=== PATIENT | female | born 1980 | race Caucasian/White ===

== ENCOUNTER 2017-10-21 06:23 | Day surgery (SDC) | payer BC ==
[~2017-10-21 06:23] MED LIST: Buffered Lidocaine 0.9% SYRIN* 5 ML/SYR SYRINGE INTRADERM ONE; Famotidine TAB* 20 MG PO ONE
[2017-10-21] MEDS ORDERED: Famotidine TAB* 20 MG ONE (06:24)
[2017-10-21] MEDS ORDERED: ceFAZolin 2 GM PREMIX (*) 2 GM/50 ML BAG IVPB ONE (06:31)
[2017-10-21] MEDS ORDERED: Bupivacaine 0.25% SDV* 30 ML ONE ×2 (07:11→09:06)
[2017-10-21] MEDS ORDERED: Midazolam* 1 MG/ML 5 ML VIAL (5 MG) ONE (07:27)
[2017-10-21] MEDS ORDERED: fentaNYL* 50 MCG/ML 2 ML VIAL (100 MCG VIAL) ONE (07:27)
[2017-10-21] MEDS ORDERED: oxyCODONE TAB* 5 MG TAB PO PRN (07:45)
[2017-10-21] MEDS ORDERED: Naloxone* 0.4 MG/ML 1 ML VIAL IV PRN (07:45)
[2017-10-21] MEDS ORDERED: HYDROmorphone INJ* 1 MG/ML CARPUJECT SYRINGE IV PRN (07:45)
[2017-10-21] MEDS ORDERED: Acetaminophen TAB* 325 MG PO PRN (07:45)
[2017-10-21] MEDS ORDERED: Lidocaine 2% PF * 5 ML VIAL ONE (08:33)
[2017-10-21] MEDS ORDERED: Propofol* 10 MG/ML 20 ML BTL IV PUSH ONE (08:33)
[2017-10-21] MEDS ORDERED: DiMENhydriNATE IV* 50 MG/ML VIAL ONE ×2 (08:33→10:17)
[2017-10-21] MEDS ORDERED: Ondansetron INJ* 2 MG/ML VIAL ONE (08:33)
[2017-10-21] MEDS ORDERED: Dexamethasone IV* 4 MG/ML 1 ML (4 MG) ONE (08:33)
[2017-10-21] MEDS ORDERED: Ketorolac INJ* 30 MG/ML 1 ML VIAL ONE (08:33)
[2017-10-21] MEDS ORDERED: EPHEDrine (Pressors)* 50 MG/ML VIAL ONE (08:54)
[2017-10-21] MEDS ORDERED: Glycopyrrolate IV* 0.2 MG/ML 1 ML VIAL ONE (08:54)
[2017-10-21] MEDS ORDERED: DiMENhydriNATE IV* 50 MG/ML VIAL IV PUSH PRN (10:19)
[2017-10-21 10:45] VITALS: BP 119/65
--- NOTE | 2017-10-21 13:59 | OP ---
DATE OF OPERATION: 10/21/17 - [facility] DATE OF : 78 SURGEON: Homero Levy MD RAD TECHNOLOGIST: FRANCESCO Nicole. An senior office support assistant sosa was needed through the entirety of the procedure to aid in positioning of the arm and retraction. ANESTHESIOLOGIST: Dr. Sullivan. ANESTHESIA: General. PRE-OP DIAGNOSES: 1. Left wrist triangular fibrocartilage complex tear. 2. Severe left extensor carpi ulnaris tendinitis. POST-OP DIAGNOSES: 1. Left wrist triangular fibrocartilage complex tear. 2. Severe left extensor carpi ulnaris tendinitis. OPERATIVE PROCEDURE: 1. Left wrist arthroscopic TFCC debridement. 2. Left wrist extensor carpi ulnaris tendon tenosynovectomy with groove deepening and retinacular repair. Please note that this was extensively more work than a traditional tenosynovectomy as it required the use of the elaine for groove deepening and creation of a retinacular flap for loose closure over the tendon to allow for frictionless gliding of the tendon. INDICATIONS: Renée is 37 year old. She has severe dorsal and wrist pain. Exam was consistent with severe ECU tendonitis, MRI confirmed this. She got better with an injection. She also had a bit of central tearing on the MRI of her TFCC. I talked to her about doing arthroscopic TFCC debridement and addressing the ECU tendonitis as well. She understood the risks and benefits. She wanted to proceed. ESTIMATED BLOOD LOSS: 10 mL. COMPLICATIONS: See above and below. FINDINGS: A central TFCC tear was noted on the arthroscopic portion of the procedure. DESCRIPTION OF PROCEDURE: Renée was seen in the preoperative holding area. The correct side, site, and procedure were identified. We came back to the operating room where the arm was prepped and draped in the usual fashion. A time -out was performed. The arm was placed in the Acumed traction tower and traction was applied to the wrist. The arm was then exsanguinated and tourniquet was inflated to 250 mmHg. I developed a 3-4 arthroscopic portal in a standard fashion using an 11 blade followed by the mosquito and then the blunt trocar. The camera was introduced. The diagnostic arthroscopic ports of the procedure was begun. The radial-sided structures all looked good. As we came ulnar, there was a central TFCC tear that was noted. I developed 4-5 portal and introduced the shaver into the portal. We debrided the tear. It was about at this point that she experienced severe bradycardia. Per Dr. Sullivan' recommendation, we stopped the procedure. The drapes were taken down. Tourniquet was deflated. She was treated with medication and her bradycardia resolved completely over the course of the next minute or so. We waited few more minutes. At this point, she was looking very stable, so we went ahead and proceeded as the remainder of the procedure could be done under local MAC anesthesia with minimal pain and the patient's part and minimal anesthesia. We cleaned the arm again and then draped again in the usual fashion. We had another time-out, and then I made a longitudinal incision over the dorsal ulnar wrist over the area of the fifth dorsal compartment. Dissection was carried down longitudinally. The extensor retinaculum of the sixth dorsal compartment was released. There was tenosynovitis encountered all about the tendon, this was debrided. The tendon was then retracted out of the way. I excised the periosteum off of the groove in the ulna where the tendon resides. The groove was then deepened using the 4 mm pineapple elaine. Once I had excised all of the tenosynovitis and confirmed a complete tenosynovectomy in the sixth dorsal compartment, I then deepened the groove, I irrigated out the wound. The ECU tendon was placed back into the groove after bone wax was applied to the bed of the groove. The septum between the fifth and sixth dorsal compartments was released. The EDM tendon was transposed dorsal to the retinaculum. This gave a little bit more length on the retinaculum. I performed a little rotation of flap with the sixth dorsal compartment retinaculum. This was then rotated and then sewed in place loosely over the ECU tendon leaving the EDM tendon transposed. At this point, there was absolutely no compression on the ECU tendon. Everything was looking nice and clean, so we irrigated out the wounds. Skin was closed with 4-0 Monocryl and Steri-Strips. She had no further physiological issues throughout the remainder of the case. She woke up uneventfully and was taken to recovery room in stable condition. I did place her on a short arm cock-up splint. [id number]/[facility] #: [id number] [facility]PITALJer
== END 2017-10-21 10:54 | disposition home or self-care (01) ==
LOC: OREAST 06:23
PROVIDERS: ATTEND Orthopaedic Surgery Hand Surgery
DX: M65.842 Other synovitis and tenosynovitis, left hand (principal); M24.832 Other specific joint derangements of left wrist, not elsewhere classified; Z87.891 Personal history of nicotine dependence; E03.9 Hypothyroidism, unspecified; G91.2 (Idiopathic) normal pressure hydrocephalus
CPT/HCPCS: 81025; 88304; A9270-GY; J0690; J1100; J1240; J1885; J2250; J2405; J2704; J3010

== ENCOUNTER 2019-05-21 12:58 | Emergency (ER) | payer BC ==
[2019-05-21 13:59] VITALS: BP 120/63
--- NOTE | 2019-05-21 14:52 | UC ---
Minor Trauma HPI - HPI Summary HPI Summary: Pt presents with c/o right knee, ankle and barnes pain s/p falling from standing height elaine evening in her bathroom at home. Pt reports that she has c/o pain with weight bearing and has large bruise on right mid anterior barnes. Pt reports that she hit her head on the sink as well but denies LOC, nausea, vomiting, or L[place]S. - History of Current Complaint Chief Complaint: UCLowerExtremity Stated Complaint: RT LEG INJURY Time Seen by Provider: 05/21/19 14:25 Hx Obtained From: Patient Hx Last Menstrual Period: pt is on depo, does not have reg periods ?: No Onset/Duration: Lasting Days, Still Present Onset Of Pain: Post Accident Severity Initially: Mild Severity Currently: Moderate Pain Intensity: 6 Mechanism Of Injury: Fall From A Standing Position, Twisted Aggravating Factor(s): Ambulation, Weight Bearing Alleviating Factor(s): Rest Associated Signs And Symptoms: Positive: Ecchymosis, Swelling - Risk Factors Penetrating Injury Risk Factors: Negative - Allergies/Home Medications Allergies/Adverse Reactions: Allergies Allergy/AdvReac Type Severity Reaction Status Date / Time codeine Allergy Severe nausea, Verified 05/21/19 13:43 dizziness Opioids - Morphine Analogues Allergy Unknown Unknown Verified 05/21/19 13:44 Reaction Details Home Medications: Home Medications Cyanocobalamin TAB* [Vitamin B12 TAB*] 500 mcg PO DAILY 05/21/19 [History Confirmed 05/21/19] PMH/Surg Hx/FS Hx/Imm Hx Previously Healthy: Yes - Surgical History Surgical History: None Surgery Procedure, Year, and Place: had 2 epidural with childbirth to prevent pain induced seizures. left wrist surgery - Family History Known Family History: Positive: Cardiac Disease - Social History Occupation: Employed Full-time Lives: With Family Alcohol Use: Rare Substance Use Type: None Smoking Status (MU): Former Smoker Amount Used/How Often: smoked for 12 years 1/2ppd Have You Smoked in the Last Year: No When Did the Patient Quit Smoking/Using Tobacco: 7.5 years ago Review of Systems All Other Systems Reviewed And Are Negative: Yes Constitutional: Positive: Negative Skin: Positive: Bruising Eyes: Positive: Negative ENT: Positive: Negative Respiratory: Positive: Negative Cardiovascular: Positive: Negative Gastrointestinal: Positive: Negative Genitourinary: Positive: Negative Motor: Positive: Decreased ROM - right ankle and knee, c/o knee with rom Neurovascular: Positive: Negative Musculoskeletal: Positive: Decreased ROM - right knee and ankle, Edema - right knee and ankle, Myalgia - right knee and ankle Neurological: Positive: Negative Psychological: Positive: Negative Is Patient Immunocompromised?: No Physical Exam Triage Information Reviewed: Yes Appearance: Well-Appearing Vital Signs: Initial Vital Signs Temp 98.2 F 05/21/19 13:47 Pulse 77 05/21/19 13:47 Resp 18 05/21/19 13:47 BP 120/63 05/21/19 13:47 Pulse Ox 100 05/21/19 13:47 Vital Signs Reviewed: Yes Eye Exam: Normal ENT Exam: Normal Dental Exam: Normal Neck exam: Normal Respiratory: Positive: No respiratory distress Musculoskeletal: Positive: Strength Limited @, ROM Limited @, Edema @ Neurological Exam: Normal Psychological Exam: Normal Skin Exam: Other - ecchymosis, right anterior mid barnes, ~ 8 cm in diameter Diagnostics - Radiology No standard instances Radiology Interpretation Completed By: Radiologist - right knee: negative for fracture, and dislocation right ankle: negative for fracture, and dislocation Minor Trauma Course/Dx - Differential Dx/Diagnosis Differential Diagnosis/HQI/PQRI: Contusion(s), Fracture, Sprain, Strain Provider Diagnosis: Right ankle sprain, Right knee sprain Discharge ED - Sign-Out/Discharge Documenting (check all that apply): Patient Departure All imaging exams completed and their final reports reviewed: Yes - Discharge Plan Condition: Stable Disposition: HOME Patient Education Materials: Ankle Sprain (ED), Knee Sprain (ED) Referrals: Christine Pettit MD [Primary Care Provider] - Callum Holland MD [Medical Doctor] - If Needed - Billing Disposition and Condition Condition: STABLE Disposition: Home
== END 2019-05-21 15:41 | disposition home or self-care (01) ==
LOC: UCCORT 12:58
DX: S93.401A Sprain of unspecified ligament of right ankle, initial encounter (principal); S83.91XA Sprain of unspecified site of right knee, initial encounter; Z88.5 Allergy status to narcotic agent; Z87.891 Personal history of nicotine dependence; W18.30XA Fall on same level, unspecified, initial encounter; Y92.9 Unspecified place or not applicable
CPT/HCPCS: 99211; G0463